=== PATIENT | male | born 1975 | race Native Hawaiian/Other Pacific Islander ===

== ENCOUNTER 2020-10-30 13:32 | Emergency (ER) | payer MEDICARE, MEDICAID ==
[~2020-10-30] VITALS: Ht 190.5 cm; Wt 133.0 kg
[2020-10-30 13:40] VITALS: BP 148/98
[2020-10-30] MEDS ORDERED: acetaminophen 325mg tablet PO ONE (15:15)
[2020-10-30] MEDS ORDERED: ibuprofen tablet 400 MG TABLET PO ONE (15:15)
== END 2020-10-30 16:45 | disposition home or self-care (01) ==
LOC: ER 13:33
DX: R07.89 Other chest pain (principal); R06.02 Shortness of breath
CPT/HCPCS: 93005; 99283